=== PATIENT | female | born 1960 | race Caucasian/White ===

== ENCOUNTER 2017-12-12 14:04 | Emergency (ER) | payer SELFPAY ==
[~2017-12-12 14:04] MED LIST: TAB-TAB PO
[2017-12-12 14:06] VITALS: BP 152/85; PULSE 93; RESP 18; TEMP 98.4; O2SAT 98
[2017-12-12] MEDS ORDERED: TETANUS/DIPHTHERIA TOXOID ADULT 0.5 ML VIAL IM ONE (14:15)
[2017-12-12] MEDS ORDERED: CLIN150C14 PO (14:19)
--- NOTE | 2017-12-12 14:19 | PD ---
HPI Chief Complaint: Laceration/Skin Injury Time Seen by Provider: 14:12 Travel History International Travel<30 days: No Contact w/Intl Traveler<30days: No Traveled to known affect area: No History of Present Illness HPI Patient presents with right lower extremity puncture wound. Patient had thrown away meat skewers in the trash. States she was walking by the trash when one punctured her right lower medial leg with insertion of approximately an inch to inch and a half. Unable to recall tetanus. Removed the skewer without significant bleeding PFSH Past Medical History Diminished Hearing: No Respiratory: Yes (ENVIRONMENTAL ALLERGIES) Immunizations Current: Yes Pneumonia: Yes (X 2) Tetanus Vaccination: < 5 Years Influenza Vaccination: No ?: Not Menopausal: Yes : 6 Para: 6 Tubal Ligation: Yes Past Surgical History Joint Replacement: Yes (RIGHT ANKLE) Tonsillectomy: Yes Other Surgery: Yes (RIGHT BACK NERVE DAMAGE-REMOVED NERVES, FRACTURED NOSE REPAIR) Social History Alcohol Use: Yes (OCC) Tobacco Use: No (quit) Substance Use: No Allergies-Medications (Allergen,Severity, Reaction): Coded Allergies: penicillin G (Unverified Allergy, Severe, SWELLING AND HIVES, 12/12/17) Reported Meds & Prescriptions Reported Meds & Active Scripts Active Reported Multivitamin (Multivitamins) 1 Tab Tab 1 Tab PO DAILY Review of Systems General / Constitutional: No: Fever Eyes: No: Visual changes HENT: No: Headaches Cardiovascular: No: Chest Pain or Discomfort Respiratory: No: Shortness of Breath Gastrointestinal: No: Abdominal Pain Genitourinary: No: Dysuria Musculoskeletal: No: Pain Skin: No Rash Neurologic: No: Weakness Psychiatric: No: Depression Endocrine: No: Polydipsia Hematologic/Lymphatic: No: Easy Bruising Physical Exam Narrative GENERAL: Well-nourished, well-developed patient. SKIN: Focused skin assessment warm/dry. HEAD: Normocephalic. EYES: No scleral icterus. No injection or drainage. NECK: Supple, trachea midline. No JVD or lymphadenopathy. CARDIOVASCULAR: Regular rate and rhythm without murmurs, gallops, or rubs. RESPIRATORY: Breath sounds equal bilaterally. No accessory muscle use. GASTROINTESTINAL: Abdomen soft, non-tender, nondistended. MUSCULOSKELETAL: No cyanosis, or edema. BACK: Nontender without obvious deformity. No CVA tenderness. Temperature wound right lower medial leg without active bleeding erythema or edema Data Data Last Documented VS Vital Signs Date Time Temp Pulse Resp B/P (MAP) Pulse Ox O2 Delivery O2 Flow Rate FiO2 12/12/17 14:06 98.4 93 18 152/85 (107) 98 Orders Orders Tetanus/Diphtheria Tox Adult (Tetanus/Di (12/12/17 14:15) MDM Medical Decision Making Medical Screen Exam Complete: Yes Emergency Medical Condition: Yes Differential Diagnosis Puncture wound, laceration, tetanus Narrative Course Assessment and plan discussed with patient at bedside. Wound was irrigated, cleaned and dressed in sterile fashion. Tetanus updated. Diagnosis Primary Impression: Puncture wound Patient Instructions: General Instructions Additional Instructions: Encouraged antibacterial soap and water 2 times per day. Follow-up with PCP. Return to emergency with any onset of new symptoms. Motrin or Tylenol for pain. Med/Other Pt SpecificInfo: Prescription(s) given Scripts Clindamycin (Clindamycin) 150 Mg Cap 300 MG PO BID for Infection for 10 Days, #40 CAP 0 Refills Prov: Chavez Chicas MD 12/12/17 Disposition: 01 DISCHARGE HOME Condition: Good Chavez Chicas MD Dec 12, 2017 14:19
== END 2017-12-12 14:26 | disposition home or self-care (01) ==
LOC: PHED 14:04
DX: S81.831A Puncture wound without foreign body, right lower leg, initial encounter (principal); Z23 Encounter for immunization; Z88.0 Allergy status to penicillin; W45.8XXA Other foreign body or object entering through skin, initial encounter
CPT/HCPCS: 90471; 90714